=== PATIENT | female | born 1975 | race Caucasian/White ===

== ENCOUNTER 2023-04-09 19:11 | Emergency (ER) | payer SELFPAY ==
[~2023-04-09] VITALS: Ht 172.7 cm; Wt 89.0 kg
[2023-04-09 19:31] VITALS: BP 155/78; PULSE 63; RESP 18; TEMP 98.5; O2SAT 98
[2023-04-09 20:08] LABS: CLARITY URINE CLEAR (CLEAR); COLOR URINE YELLOW (YELLOW); GLUCOSE URINE NEGATIVE (NEGATIVE); KETONES URINE NEGATIVE (NEGATIVE); LEUKOCYTE ESTERASE URINE NEGATIVE (NEGATIVE); NITRITE URINE NEGATIVE (NEGATIVE); OCCULT BLOOD URINE 2+ (NEGATIVE); PROTEIN URINE NEGATIVE (NEGATIVE); SPECIFIC GRAVITY URINE 1.023 (1.005-1.030); UROBILINOGEN URINE 0.2 E.U./dL (0.2-1.0)
[2023-04-09 20:10] LABS: YEAST URINE NONE SEEN
[2023-04-09 20:59] LABS: BACTERIA URINE 1+; SQUAMOUS EPITHELIAL CELL URINE FEW /lpf (RARE/1+); WBC URINE 0-2 /hpf (0-2)
[2023-04-09] MEDS ORDERED: KETOROLAC 30MG/ML VIAL IV STA (21:07)
[2023-04-09] MEDS ORDERED: ONDANSETRON HCL 4MG/2ML INJ IV ONE (21:15)
[2023-04-09] MEDS ORDERED: SODIUM CHLORIDE 0.9% 1,000 ML IV ONE (21:15)
[2023-04-09 22:41] LABS: BASOPHILS % 0.3 % (0.0-2.0); DIFFERENTIAL COMMENT 0; EOSINOPHILS % 1.4 % (0.0-5.0); HEMATOCRIT. 34.3 % (36.0-48.0); MEAN CORPUSCULAR HEMOGLOBIN 25.2 pg (28.0-32.0); MEAN CORPUSCULAR HGB CONC 32.2 g/dL (31.0-37.0); MEAN CORPUSCULAR VOLUME 78.1 fL (81.0-99.0); MEAN PLATELET VOLUME 7.6 fl (7.4-10.4); NEUTROPHILS % 62.3 % (40.0-76.0); PLATELET 277 x1000/uL (130-400); RED BLOOD CELL COUNT 4.39 mill/uL (4.2-5.4); RED CELL DISTRIBUTION WIDTH 15.3 % (11.6-14.6)
[2023-04-09 22:53] LABS: CHLORIDE 109 mEq/L (98-107); INDEX HEMOLYSI 1 (1-3); INDEX ICTERIC 1 (1-4); INDEX LIPEMIC 1 (1-3); POTASSIUM 3.7 mEq/L (3.5-5.1); SODIUM 141 mEq/L (136-145)
[2023-04-09 23:02] LABS: ALANINE AMINOTRANSFERASE 20 IU/L (13-61); ALBUMIN 3.5 g/dL (3.4-5.0); ASPARTATE AMINOTRANSFERASE 15 IU/L (15-37); BILIRUBIN TOTAL 0.2 mg/dL (0.1-1.0); CALCIUM 9.2 mg/dL (8.5-10.1); CARBON DIOXIDE 28 mEq/L (21-32); CREATININE 0.6 mg/dL (0.6-1.3); GLUCOSE 108 mg/dL (70-105); PROTEIN TOTAL 8.1 g/dL (6.0-8.3); TROPONIN I HIGH SENSITIVITY 6 ng/L (<54); UREA NITROGEN BLOOD 11 mg/dL (7-21)
[2023-04-10] MEDS ORDERED: ONDANSETRON 4MG ODT PO ONE (02:00)
[2023-04-10] MEDS ORDERED: KETOROLAC 60MG/2ML VIAL IM ONE (02:00)
[2023-04-10] MEDS ORDERED: FAMO-135 PO (02:08)
== END 2023-04-10 02:24 | disposition home or self-care (01) ==
LOC: ER 19:11
DX: R10.814 Left lower quadrant abdominal tenderness (principal); R10.812 Left upper quadrant abdominal tenderness; I10 Essential (primary) hypertension
CPT/HCPCS: 99285; 71045; 80053; 81003; 81025; 83690; 85025; 84484; 36415; 93005; 74176; J7030